=== PATIENT | female | born 1955 | race Caucasian/White ===

== ENCOUNTER 2016-08-19 07:32 | Emergency (ER) | payer OTHER, MEDICAID ==
[~2016-08-19] VITALS: Wt 54.1 kg
[~2016-08-19 07:32] MED LIST: FLUO20CA38 PO; METH-70 PO; UDKCL40 PO
[2016-08-19] MEDS ORDERED: HYDROCODONE/APAP (5/325) TAB PO ONE (08:00)
[2016-08-19] MEDS ORDERED: HYDR-906 PO (08:12)
--- NOTE | 2016-08-19 08:15 | ERD ---
ER Documentation Chief Complaint Date/Time DATE: 08/19/16 TIME: 08:13 Chief Complaint l. arm fx w pain x10 days per pt. HPI 61-year-old female comes emergency department with a left shoulder fracture, she states that she fell 9 days ago and is here for pain control. Patient states that she was originally seen at [place], the she is supposed to see orthopedics. She currently presents in a sling and states that this kind of fracture was "inoperable." She complains of achy pain, at the right left proximal shoulder. She has not had any swelling. She denies fevers or chills. She denies chest pain or shortness of breath. ROS All systems reviewed and are negative except as per history of present illness. Medications Home Meds Active Scripts Hydrocodone/Acetaminophen ([place] 5-325 Tablet) 1 Each Tablet, 1 TAB PO Q6H Y for PAIN, #3 TAB Prov:VANDA HUNTER PA-C 08/19/16 Potassium Chloride* (KCl*) 40 Meq/30 Ml Soln, 20 MEQ PO DAILY for 7 Days, MEQ Prov:JITENDRA COVINGTON DO 04/29/15 Reported Medications Fluoxetine Hcl* (Prozac*) 20 Mg Capsule, 20 MG PO DAILY, CAP 02/24/15 Methocarbamol* (Robaxin*) 750 Mg Tablet, 750 MG PO TID, TAB 02/24/15 Allergies Allergies: Coded Allergies: Sulfa (Sulfonamide Antibiotics) (Verified Allergy, Unknown, 04/29/15) PMhx/Soc History of Surgery: Yes (left hip surgery) Anesthesia Reaction: No Hx Neurological Disorder: No Hx Respiratory Disorders: No Hx Cardiac Disorders: No Hx Psychiatric Problems: No Hx Miscellaneous Medical Probl: Yes (Hep C) Hx Alcohol Use: Yes (socially) Hx Substance Use: Yes (past) Hx Tobacco Use: Yes Smoking Status: Light tobacco smoker Physical Exam Vitals Vital Signs Date Time Temp Pulse Resp B/P Pulse Ox O2 Delivery O2 Flow Rate FiO2 08/19/16 07:35 97.6 115 20 143/66 96 Physical Exam General: Well-developed, well-nourished. The patient appears in no acute distress. HEENT: Head is normocephalic, atraumatic. No scleral icterus. Neck: Supple. Nontender. Lungs: Clear to auscultation. Normal air movement. Heart: Regular rate and rhythm. S1 and S2 are normal. No murmurs, gallops, or rubs. Abdomen: Nondistended. Extremities: Left shoulder proximal humerus is tender to palpation, she is able to move the shoulder. There is no hematoma, no focal swelling. Capillary refill less than 2 seconds. Radial, ulnar, median nerve intact Neurologic: Alert and oriented 3. No focal deficits. Skin: Normal turgor. No rash or lesions. Results 24 hrs Current Medications Medications (Trade) Dose Ordered Sig/Don Route PRN Reason Start Time Stop Time Status Last Admin Dose Admin Acetaminophen/ Hydrocodone Bitart ([place] (5/325)) 1 tab ONCE ONCE PO 08/19/16 08:00 08/19/16 08:01 DC 08/19/16 08:06 Procedures/MDM 61-year-old female comes in with left shoulder injury, patient reports that it was fractured and it is "inoperable." There is no evidence of DVT on examination, no swelling. There is no pallor signs of infection, or limb threatening process. I doubt acute coronary syndrome, dissection. She states that since this is a Saturday that she needs something for pain, she will be given one days worth of [place], and she was advised that further refills need to go through her either primary doctor or orthopedics. Patient's blood pressure was elevated (>120/80) but appears stable without evidence of hypertension emergency or urgency. The patient was counseled about the risks of hypertension and urged to pursue outpatient monitoring and therapy within a week with their primary care physician. Departure Diagnosis: Primary Impression: Injury of upper extremity Condition: Good Patient Instructions: Fracture, Upper Extremity Additional Instructions: DRAFTER APPRENTICE: YOU HAVE A MEDICAL CONDITION WHICH REQUIRES YOU TO SEE A SPECIALIST WITHIN THIS WEEK. PLEASE FOLLOW UP WITH YOUR PRIMARY PHYSICIAN FOR REFFERAL.IF YOU DO NOT HAVE A PRIMARY CARE PHYSICIAN AND/OR YOU CAN NOT AFFORD TO SEE A PHYSICIAN THE FOLLOWING RESOURCES HAVE BEEN SUPPLIED TO YOU. IT IS YOUR RESPONSIBILITY TO BE SEEN BY THE SPECIALIST VANDA HUNTER PA-C Aug 19, 2016 08:15
== END 2016-08-19 08:20 | disposition home or self-care (01) ==
LOC: FTE 07:32
DX: S49.92XA Unspecified injury of left shoulder and upper arm, initial encounter (principal); F17.210 Nicotine dependence, cigarettes, uncomplicated; W18.39XA Other fall on same level, initial encounter; Y92.9 Unspecified place or not applicable
CPT/HCPCS: 99283